=== PATIENT | female | born 1955 | race Caucasian/White ===

== ENCOUNTER 2016-11-27 12:38 | Observation (INO) | payer MEDICARE, OTHER ==
[2016-11-27] VITALS (7 sets, daily range): BP systolic 113–136; BP diastolic 47–74; PULSE 69–87; RESP 14–18; TEMP 97.8–98.2; O2SAT 97–99
[~2016-11-27] VITALS: Ht 172.7 cm; Wt 78.0 kg
[~2016-11-27 12:38] MED LIST: ATOR10 PO; CYMB60CA PO; HYDR-3129 PO; LEVO112T2 PO; LYRI150C PO; METO25 PO; NITR.4; PREG75 PO; ST JTAB PO; TAB-TAB PO; TEMA15 PO; TICA90 PO; VALI10TA PO
[2016-11-27] MEDS ORDERED: ASPI81TA11 PO (12:54)
[2016-11-27] MEDS ORDERED: ATOR10TA15 PO (12:56)
[2016-11-27] MEDS ORDERED: DULO1CAP3 PO (12:56)
[2016-11-27] MEDS ORDERED: DIAZ10TA PO (12:56)
[2016-11-27] MEDS ORDERED: HYDR-3583 PO (12:57)
--- NOTE | 2016-11-27 12:57 | PD ---
HPI Chief Complaint: Chest Pain Time Seen by Provider: 12:56 Travel History International Travel<30 days: No Contact w/Intl Traveler<30days: No Traveled to known affect area: No History of Present Illness HPI 61-year-old female came to the emergency room with history of precordial chest pain with radiation to her right arm. Patient took 2 of her nitroglycerin with no relief. She has history of coronary artery disease and her flame hardening machine setter is Dr. Vani Cardona. She called the flame hardening machine setter's office who asked her to call 911. EMS had given her one sublingual spray that subsided the chest pain. Currently she is chest pain-free. She does seem anxious. Vital signs are within normal limits. No history of syncopal episode or shortness of breath. [facility] Past Medical History Narrative Medical List of her past medical, surgical, social and family history was reviewed from the nursing note. Arthritis: Yes (OSTEO) Autoimmune Disease: No Blood Disorders: No Bipolar Disorder: Yes Anxiety: Yes Depression: Yes Heart Rhythm Problems: No Cancer: No Cardiac Catheterization: Yes Cardiovascular Problems: Yes High Cholesterol: Yes (05/29) Chest Pain: Yes Congestive Heart Failure: No Cerebrovascular Accident: Yes Diabetes: No Diminished Hearing: No Endocrine: Yes Fibromyalgia: Yes Gastrointestinal Disorders: Yes Genitourinary: No Hypertension: Yes Immune Disorder: No Implanted Vascular Access Dvce: Yes Musculoskeletal: Yes (osteoporosis, herniated disk,) Neurologic: Yes (NEUROPATHY) Psychiatric: Yes (bipolar, ptsd, depression) Reproductive: No Respiratory: No Myocardial Infarction: Yes (05/29) Thyroid Disease: Yes (HYPO) PNEUMOCCOCAL Vaccine (Year): 2 ?: Not Menopausal: Yes : 2 Para: 2 Past Surgical History Abdominal Surgery: No Body Medical Devices: DENTAL CROWN Cardiac Surgery: No Coronary Artery Bypass Graft: No Ear Surgery: No Endocrine Surgery: No Genitourinary Surgery: No Gynecologic Surgery: Yes (NOHEMY) Hysterectomy: Yes Neurologic Surgery: No Oral Surgery: Yes Thoracic Surgery: No Tonsillectomy: Yes Other Surgery: Yes (SILICONE AUGMENTATION MAMMOPLASTY, UPPER LID BLEPHAROPLASTY ) Social History Alcohol Use: No Tobacco Use: No Substance Use: No Allergies-Medications (Allergen,Severity, Reaction): Coded Allergies: No Known Allergies (Verified , 08/21/15) Comments No known drug allergies. Reported Meds & Prescriptions Reported Meds & Active Scripts Active Reported Temazepam 30 Mg Cap 30 Mg PO HS PRN Lyrica (Pregabalin) 150 Mg Cap 150 Mg PO BID Multiple Vitamin 1 Tab 1 Tab PO DAILY Levothyroxine (Levothyroxine Sodium) 112 Mcg Tab 112 Mcg PO DAILY Hydrocodone-Acetaminophen 10-325 mg Tab 1 Tab PO Q6H PRN Diazepam 10 Mg Tab 10 Mg PO Q8HR PRN Duloxetine DR (Duloxetine HCl) 60 Mg Capdr 60 Mg PO DAILY Atorvastatin (Atorvastatin Calcium) 10 Mg Tab 10 Mg PO HS Aspirin EC (Aspirin) 81 Mg Tabdr 81 Mg PO DAILY Narrative Medication List of her home medications reviewed from the nursing note. Review of Systems Except as stated in HPI: all other systems reviewed are Neg Physical Exam Narrative GENERAL: Awake, alert, elderly, looks older than her age, anxious SKIN: Focused skin assessment warm/dry. HEAD: Atraumatic. Normocephalic. EYES: Pupils equal and round. No scleral icterus. No injection or drainage. ENT: No nasal bleeding or discharge. Mucous membranes pink and moist. NECK: Trachea midline. No JVD. CARDIOVASCULAR: Regular rate and rhythm. No murmur appreciated. RESPIRATORY: No accessory muscle use. Clear to auscultation. Breath sounds equal bilaterally. GASTROINTESTINAL: Abdomen soft, non-tender, nondistended. Hepatic and splenic margins not palpable. MUSCULOSKELETAL: No obvious deformities. No clubbing. No cyanosis. No edema. NEUROLOGICAL: Awake and alert. No obvious cranial nerve deficits. Motor grossly within normal limits. Normal speech. PSYCHIATRIC: Appropriate mood and affect; insight and judgment normal. Data Data Last Documented VS Vital Signs Date Time Temp Pulse Resp B/P Pulse Ox O2 Delivery O2 Flow Rate FiO2 11/27/16 14:00 78 14 128/69 98 Room Air 11/27/16 12:46 98.2 Orders Electrocardiogram (11/27/16 13:22) Basic Metabolic Panel (Bmp) (11/27/16 13:22) Ckmb (Isoenzyme) Profile (11/27/16 13:22) Complete Blood Count With Diff (11/27/16 13:22) Magnesium (Mg) (11/27/16 13:22) Prothrombin Time / Inr (Pt) (11/27/16 13:22) Act Partial Throm Time (Ptt) (11/27/16 13:22) Troponin I (11/27/16 13:22) Chest, Single Ap (11/27/16 13:22) Ecg Monitoring (11/27/16 13:22) Bilateral Bp Monitoring (11/27/16 13:22) Iv Access Insert/Monitor (11/27/16 13:22) Oximetry (11/27/16 13:22) Oxygen Administration (11/27/16 13:22) Sodium Chloride 0.9% Flush (Ns Flush) (11/27/16 13:30) Aspirin Ec (Ecotrin Ec) (11/28/16 09:00) Atorvastatin (Lipitor) (11/27/16 21:00) Diazepam (Valium) (11/27/16 14:45) Duloxetine Dr (Quin Bates) (11/28/16 09:00) Acetamin-Hydrocod 325-10 Mg ([place] 10-32 (11/27/16 14:45) Levothyroxine (Synthroid) (11/28/16 06:00) Pregabalin (Lyrica) (11/27/16 21:00) Temazepam (Restoril) (11/27/16 14:45) Multivitamin (Theragran) (11/28/16 09:00) Place In Observation (11/27/16 ) Code Status (11/27/16 14:35) Vital Signs (Adult) Q4H (11/27/16 14:35) Activity Bed Rest (11/27/16 14:35) Barrel Cooper / Telemetry .CONTINUOUS (11/27/16 14:35) Intake + Output MICHAEL.QSHIFT (11/27/16 14:35) Notify Dr: Other (11/27/16 14:35) Diet Heart Healthy (11/27/16 Dinner) Sodium Chlor 0.9% 1000 Ml Inj (Ns 1000 M (11/27/16 14:35) Sodium Chloride 0.9% Flush (Ns Flush) (11/27/16 14:45) Sodium Chloride 0.9% Flush (Ns Flush) (11/27/16 21:00) Acetaminophen (Tylenol) (11/27/16 14:45) Ondansetron Inj (Zofran Inj) (11/27/16 14:45) Basic Metabolic Panel (Bmp) (11/28/16 06:00) Complete Blood Count With Diff (11/28/16 06:00) Enoxaparin Inj (Lovenox Inj) (11/27/16 16:00) Naloxone Inj (Narcan Inj) (11/27/16 14:45) Docusate Sodium-Senna (Carol-Colace) (11/27/16 21:00) Magnesium Hydroxide Liq (Milk Of Magnesi (11/27/16 14:45) Sennosides (Senokot) (11/27/16 14:45) Bisacodyl Supp (Dulcolax Supp) (11/27/16 14:45) Lactulose Liq (Lactulose Liq) (11/27/16 14:45) Consult Cardiology (11/27/16 ) Admit Order (Ed Use Only) (11/27/16 14:41) Labs Laboratory Tests Test 11/27/16 13:25 White Blood Count 8.7 TH/MM3 Red Blood Count 3.88 MIL/MM3 Hemoglobin 11.2 GM/DL Hematocrit 34.4 % Mean Corpuscular Volume 88.5 FL Mean Corpuscular Hemoglobin 28.7 PG Mean Corpuscular Hemoglobin 32.5 % Concent Red Cell Distribution Width 14.8 % Platelet Count 189 TH/MM3 Mean Platelet Volume 9.0 FL Neutrophils (%) (Auto) 70.6 % Lymphocytes (%) (Auto) 21.7 % Monocytes (%) (Auto) 6.9 % Eosinophils (%) (Auto) 0.2 % Basophils (%) (Auto) 0.6 % Neutrophils # (Auto) 6.1 TH/MM3 Lymphocytes # (Auto) 1.9 TH/MM3 Monocytes # (Auto) 0.6 TH/MM3 Eosinophils # (Auto) 0.0 TH/MM3 Basophils # (Auto) 0.0 TH/MM3 CBC Comment DIFF FINAL Differential Comment Prothrombin Time 10.1 SEC Prothromb Time International 0.9 RATIO Ratio Activated Partial 26.3 SEC Thromboplast Time Sodium Level 135 MEQ/L Potassium Level 4.0 MEQ/L Chloride Level 97 MEQ/L Carbon Dioxide Level 32.8 MEQ/L Anion Gap 5 MEQ/L Blood Urea Nitrogen 19 MG/DL Creatinine 0.74 MG/DL Estimat Glomerular Filtration 79 ML/MIN Rate Random Glucose 109 MG/DL Calcium Level 8.7 MG/DL Magnesium Level 2.1 MG/DL Total Creatine Kinase 59 U/L Troponin I LESS THAN 0.02 NG/ML MDM Medical Decision Making Medical Screen Exam Complete: Yes Emergency Medical Condition: Yes Medical Record Reviewed: Yes Interpretation(s) 12-lead EKG was reviewed by me. Normal sinus rhythm, normal axis, nonspecific ST-T wave changes. Heart rate of 69 bpm. Differential Diagnosis ACS, non-STEMI, nonspecific chest pain Narrative Course 2:28 PM patient has history of coronary artery disease and is currently medically managed. This could be an angina related chest pain. I do not see a benefit at this point putting her and chest pain center since she has known coronary artery disease that has not been fixed. I would like to bring her in for observation under medical service. Awaiting for the residents to call back. Procedures EKG Prior to Arrival: No Diagnosis Primary Impression: Chest pain Qualified Code: R07.9 - Chest pain, unspecified type Admitting Information Admitting Physician Requests: Observation Scripts Metoprolol Tartrate 25 Mg Tab25 Mg PO Q12HR #60 TAB Prov:Cirilo Sargent 11/28/16 Glen Martinez MD Nov 27, 2016 12:57
[2016-11-27] MEDS ORDERED: LEVO112T2 PO (12:59)
[2016-11-27] MEDS ORDERED: MULTTAB67 PO (12:59)
[2016-11-27] MEDS ORDERED: TEMA30CA PO (13:02)
[2016-11-27] MEDS ORDERED: LYRI150C PO (13:02)
[2016-11-27] MEDS ORDERED: SODIUM CHLORIDE 0.9% FLUSH 10 ML FLUSH IVF PRN (13:30)
[2016-11-27 13:45] LABS: AUTOMATED NEUTROPHIL # 6.1 TH/MM3 (1.8-7.7); BASOPHIL % 0.6 % (0.0-2.0); EOSINOPHIL % 0.2 % (0.0-4.0); HEMATOCRIT 34.4 % (35.0-46.0); HEMO FLAGS DIFF FINAL; LYMPH % 21.7 % (9.0-44.0); LYMPHOCYTE # 1.9 TH/MM3 (1.0-4.8); MEAN CELL VOLUME 88.5 FL (80.0-100.0); MEAN CORPUSCULAR HEMOGLOBIN 28.7 PG (27.0-34.0); MEAN CORPUSCULAR HGB CONC 32.5 % (32.0-36.0); MONO % 6.9 % (0.0-8.0); NEUT % 70.6 % (16.0-70.0); PLATELET COUNT 189 TH/MM3 (150-450); RED BLOOD COUNT 3.88 MIL/MM3 (4.00-5.30); RED CELL DISTRIBUTION WIDTH 14.8 % (11.6-17.2); WHITE BLOOD COUNT 8.7 TH/MM3 (4.0-11.0)
[2016-11-27 13:55] LABS: APTT (PATIENT) 26.3 SEC (24.3-30.1); INTERNATIONAL NORMALIZED RATIO 0.9 RATIO; PROTHROMBIN TIME - PATIENT 10.1 SEC (9.8-11.6)
[2016-11-27 14:06] LABS: ANION GAP 5 MEQ/L (5-15); BICARBONATE 32.8 MEQ/L (21.0-32.0); BLOOD UREA NITROGEN 19 MG/DL (7-18); CHLORIDE 97 MEQ/L (98-107); GLOMERULAR FILTRATION RATE 79 ML/MIN (>89); MAGNESIUM 2.1 MG/DL (1.5-2.5); SODIUM (NA) 135 MEQ/L (136-145)
[2016-11-27 14:14] LABS: CREATINE KINASE 59 U/L (26-192)
--- NOTE | 2016-11-27 14:16 | RADRPT ---
EXAM DATE/TIME: 11/27/2016 13:42 [facility] COMPARISON: CHEST SINGLE AP, July 08, 2015, 11:18. INDICATIONS : Chest pain and pressure today. MEDICAL HISTORY : Hypertension. Stroke. Myocardial infarction. SURGICAL HISTORY : Cardiac cath. Stent. ENCOUNTER: Initial ACUITY: 1 day PAIN SCORE: 8/10 LOCATION: Bilateral chest FINDINGS: There are COPD changes. The heart is normal in size. The visualized bony structures are grossly intac t. The examination is stable compared to previous. CONCLUSION: COPD changes. No acute abnormality identified. Kenyon Carranza MD on November 27, 2016 at 14:13 Board Certified Radiologist. This report was verified electronically.
[2016-11-27] MEDS ORDERED: ONDANSETRON HCL 4 MG/2 ML VIAL IVP PRN (14:45)
[2016-11-27] MEDS ORDERED: DIAZEPAM 10 MG TAB PO PRN (14:45)
[2016-11-27] MEDS ORDERED: LACTULOSE SYRUP 20 GM/30 ML CUP PO PRN (14:45)
[2016-11-27] MEDS ORDERED: NALOXONE HCL 0.4 MG/ML AMP IV PRN (14:45)
[2016-11-27] MEDS ORDERED: BISACODYL 10 MG SUPP RECTAL PRN (14:45)
[2016-11-27] MEDS ORDERED: SODIUM CHLORIDE 0.9% FLUSH 10 ML FLUSH IV FLUSH PRN (14:45)
[2016-11-27] MEDS ORDERED: ACETAMINOPHEN/HYDROcodone 325 MG/10 MG TAB PO PRN (14:45)
[2016-11-27] MEDS ORDERED: TEMAZEPAM 15 MG CAP PO PRN (14:45)
[2016-11-27] MEDS ORDERED: SENNOSIDES 8.6 MG TAB PO PRN (14:45)
[2016-11-27] MEDS ORDERED: MAGNESIUM HYDROXIDE SUSP 30 ML CUP PO PRN (14:45)
[2016-11-27] MEDS ORDERED: ACETAMINOPHEN 325 MG TAB PO PRN (14:45)
--- NOTE | 2016-11-27 14:54 | HHI.HP ---
[facility] Service [facility] Physician Luis Enrique Cazares M.D. Admission Diagnosis chest pain, rule out ACS Diagnoses: Chief Complaint: chest pain Travel History International Travel<30 Days: No Contact w/Intl Traveler <30 Da: No Traveled to Known Affected Are: No History of Present Illness 61-year-old female with history of CAD, prior [place], CVA, hypothyroidism, arthritis , depression/bipolar disorder, insomnia, fibromyalgia, neuropathy, presents with acute onset of chest pain earlier today 11/27/16. 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 The patient took one nitroglycerin however the pain worsened, therefore three minutes later she took another sublingual nitroglycerin. Her pain still did not improve so she called her lighting specialist Dr. Cardona's office who recommended she call 911 immediately. She called 911, en route she was given nitroglycerin spray which completely relieved her symptoms. She was chest pain-free upon arrival. Patient has a history of cardiac catheterization in which showed significant disease with 90% stenosis to the LAD and circumflex however both vessels are too small to stent or angioplasty. She was placed on aspirin/Brilinta at that time, however subsequently taken off Brilinta approximately 1 year ago. The patient states her symptoms were very similar to her previous [place]. However the patient states she is very active, does 45 minutes of aerobics at the [facility], and she has not experienced any chest pains recently. The patient is currently resting comfortably, no chest pains, wants to eat, agrees to admission for further evaluation by cardiology. Review of Systems Constitutional: DENIES: Diaphoretic episodes, Fever, Chills, Dizziness Eyes: DENIES: Blurred vision, Vision loss, Double Vision Ears, nose, mouth, throat: DENIES: Throat pain, Ear Pain, Odynophagia Respiratory: COMPLAINS OF: Shortness of breath, DENIES: Cough, Wheezing Cardiovascular: COMPLAINS OF: Chest pain, DENIES: Palpitations, Syncope, Dyspnea on Exertion, Lower Extremity Edema Past Family Social History Past Medical History CAD Hypothyroidism Arthritis Depression CVA Bipolar disorder Insomnia Fibromyalgia Neuropathy Past Surgical History Tonsillectomy Hysterectomy Breast augmentation Cardiac Catheterization 2014 Reported Medications Temazepam 30 Mg Cap 30 Mg PO HS PRN Lyrica (Pregabalin) 150 Mg Cap 150 Mg PO BID Multiple Vitamin 1 Tab 1 Tab PO DAILY Levothyroxine (Levothyroxine Sodium) 112 Mcg Tab 112 Mcg PO DAILY Hydrocodone-Acetaminophen 10-325 mg Tab 1 Tab PO Q6H PRN Diazepam 10 Mg Tab 10 Mg PO Q8HR PRN Duloxetine DR (Duloxetine HCl) 60 Mg Capdr 60 Mg PO DAILY Atorvastatin (Atorvastatin Calcium) 10 Mg Tab 10 Mg PO HS Aspirin EC (Aspirin) 81 Mg Tabdr 81 Mg PO DAILY Allergies: Coded Allergies: No Known Allergies (Verified , 08/21/15) Active Ordered Medications Current Medications Medications (Trade) Dose Ordered Sig/Sandy Route Start Time Stop Time Status Last Admin (Ecotrin Ec) 81 mg DAILY PO 11/28/16 09:00 (Lipitor) 10 mg HS PO 11/27/16 21:00 (Valium) 10 mg Q8HR PRN PO 11/27/16 14:45 (Cymbalta Dr) 60 mg DAILY PO 11/28/16 09:00 ([place] 10-325 Mg) 1 tab Q6H PRN PO 11/27/16 14:45 (Synthroid) 112 mcg DAILY@0600 PO 11/28/16 06:00 (Lyrica) 150 mg BID PO 11/27/16 21:00 (Restoril) 30 mg HS PRN PO 11/27/16 14:45 Multivitamins 1 tab 1 tab DAILY PO 11/28/16 09:00 (NS 1000 ml Inj) 1,000 ml @ 83 mls/hr Q12H3M IV 11/27/16 14:35 (NS Flush) 2 ml UNSCH PRN IV FLUSH 11/27/16 14:45 (NS Flush) 2 ml BID IV FLUSH 11/27/16 21:00 (Tylenol) 650 mg Q4H PRN PO 11/27/16 14:45 (Zofran Inj) 4 mg Q6H PRN IVP 11/27/16 14:45 (Lovenox Inj) 40 mg Q24H SQ 11/27/16 16:00 (Narcan Inj) 0.4 mg UNSCH PRN IV 11/27/16 14:45 (Carol-Colace) 1 tab BID PO 11/27/16 21:00 (Milk Of Magnesia Liq) 30 ml Q12H PRN PO 11/27/16 14:45 (Senokot) 17.2 mg Q12H PRN PO 11/27/16 14:45 (Dulcolax Supp) 10 mg DAILY PRN RECTAL 11/27/16 14:45 (Lactulose Liq) 30 ml DAILY PRN PO 11/27/16 14:45 Family History Mother of TN age 77 Father had TN age 20, and CAD and no recurrent TN (still alive) Sister, TN age 62 Grandfather on TN age 50 No family history of cancers Aunt-mini strokes Social History Denies any tobacco use Prior heavy alcohol use with 1 pint vodka/day, quit 02/12/14 Denies any illicit drug use Physical Exam Vital Signs Vital Signs Date Time Temp Pulse Resp B/P Pulse Ox O2 Delivery O2 Flow Rate FiO2 11/27/16 13:55 128/69 11/27/16 13:54 134/69 11/27/16 13:51 99 Room Air 11/27/16 13:51 99 Room Air 11/27/16 12:46 98.2 69 15 136/74 99 Physical Exam GENERAL: Well-nourished, well-developed elderly appearing female patient in [facility]. SKIN: Warm and dry. No rash. HEAD: Normocephalic. Atraumatic. EYES: Pupils equal and round. No scleral icterus. No injection or drainage. ENT: No nasal bleeding or discharge. Mucous membranes pink and moist. NECK: Supple. Trachea midline. CARDIOVASCULAR: Regular rate and rhythm. S1, S2 noted. No murmur appreciated. RESPIRATORY: No accessory muscle use. Clear to auscultation. Breath sounds equal bilaterally. GASTROINTESTINAL: Abdomen soft, non-tender, nondistended. Normoactive bowel sounds x4. MUSCULOSKELETAL: No obvious deformities. Extremities without clubbing, cyanosis , or edema. NEUROLOGICAL: Awake and alert. No obvious cranial nerve deficits. Motor grossly within normal limits. Moves all extremities spontaneously. Normal speech. PSYCHIATRIC: Appropriate mood and affect; insight and judgment normal. Laboratory Laboratory Tests Test 11/27/16 13:25 White Blood Count 8.7 Red Blood Count 3.88 Hemoglobin 11.2 Hematocrit 34.4 Mean Corpuscular Volume 88.5 Mean Corpuscular Hemoglobin 28.7 Mean Corpuscular Hemoglobin 32.5 Concent Red Cell Distribution Width 14.8 Platelet Count 189 Mean Platelet Volume 9.0 Neutrophils (%) (Auto) 70.6 Lymphocytes (%) (Auto) 21.7 Monocytes (%) (Auto) 6.9 Eosinophils (%) (Auto) 0.2 Basophils (%) (Auto) 0.6 Neutrophils # (Auto) 6.1 Lymphocytes # (Auto) 1.9 Monocytes # (Auto) 0.6 Eosinophils # (Auto) 0.0 Basophils # (Auto) 0.0 CBC Comment DIFF FINAL Differential Comment Prothrombin Time 10.1 Prothromb Time International 0.9 Ratio Activated Partial 26.3 Thromboplast Time Sodium Level 135 Potassium Level 4.0 Chloride Level 97 Carbon Dioxide Level 32.8 Anion Gap 5 Blood Urea Nitrogen 19 Creatinine 0.74 Estimat Glomerular Filtration 79 Rate Random Glucose 109 Calcium Level 8.7 Magnesium Level 2.1 Total Creatine Kinase 59 Troponin I LESS THAN 0.02 Result Diagram: 11/27/16 1325 11/27/16 1325 Imaging Last Impressions Chest X-Ray 11/27/16 1322 Signed Impressions: Service Date/Time: November 13:42 - CONCLUSION: COPD changes. No acute abnormality identified. Kenyon Carranza MD Assessment and Plan Problem List: (1) Chest pain ICD Code: R07.9 Status: Acute (2) CAD (coronary artery disease) ICD Code: I25.10 Status: Acute Assessment and Plan 61-year-old female with history of CAD, prior [place], CVA, hypothyroidism, arthritis , depression/bipolar disorder, insomnia, fibromyalgia, neuropathy, presents with acute onset of chest pain earlier today 11/27/16. Chest Pain: with hx of CAD. Rule out ACS. Symptoms similar to previous [place], chest pain relieved by nitro en route. Hx of Cardiac Cath showed significant disease to 2 vessels with 90% stenosis of LAD and circumflex, however vessels too small to stent or angioplasty. Initial troponin 0.02. EKG reviewed, shows NSR, no acute ST changes. -Continue to rule out ACS with serial cardiac enzymes and EKGs -Continue aspirin, statin, nitro prn, IV morphine prn -Start beta jose -check lipid panel in the am -Monitor on telemetry -Consult cardiology Hypothyroidism: chronic -check TSH -continue patient's Synthroid Arthritis/Chronic Back Pain/Fibromyalgia/Neuropathy: chronic -continue patient's Lyrica, Cymbalta, and [place] prn Insomnia: chronic -continue patient's Temazepam prn DVT Prophylaxis: Heparin sq Code Status Full Code. Discussed Condition With Patient, Patient's daughter at bedside, Dr. Cazares Attending Statement Patient seen in Emergency Room, discussed about the case, examined, discussed with HA Mrs. Geam Watkins will follow her Hospitalized for 23 hours observation and follow hydramatic specialist recommendations, also she is Asymptomatic at this time Problem Qualifiers (1) Chest pain: Qualified Code: R07.9 - Chest pain, unspecified type Gema Watkins PA-C Nov 27, 2016 14:54 Tony Traylor MD Nov 27, 2016 17:12
[2016-11-27] MEDS ORDERED: ENOXAPARIN SODIUM 40 MG/0.4 ML SYRINGE SQ SCH (16:00)
[2016-11-27] MEDS ORDERED: NITROGLYCERIN 0.4 MG SL 25 TABS/BTL SL PRN (16:15)
[2016-11-27] MEDS ORDERED: MORPHINE SULFATE 4 MG/ML INJ IV PUSH PRN (16:15)
[2016-11-27] MEDS: SODIUM CHLOR 0.9% 1000 ML INJ 1,000 ML IV SCH (18:07)
[2016-11-27] MEDS: ATORVASTATIN 10 MG TAB PO SCH ×2 (20:39→20:54)
[2016-11-27] MEDS: SODIUM CHLORIDE 0.9% FLUSH 10 ML FLUSH IV FLUSH SCH (20:39)
[2016-11-27] MEDS: HEPARIN SODIUM - SQ 10,000 UNITS/ML VIAL SQ SCH ×2 (20:39→20:54)
[2016-11-27] MEDS: METOPROLOL TARTRATE 25 MG TAB PO SCH ×2 (20:39→20:54)
[2016-11-27] MEDS: DOCUSATE SODIUM 50 MG/SENNA 8.6 MG TAB PO SCH ×2 (20:39→20:54)
[2016-11-27] MEDS: PREGABALIN 75 MG CAP PO SCH ×2 (20:39→20:55)
[2016-11-27 21:56] LABS: CREATINE KINASE 106 U/L (26-192)
[2016-11-28 01:22] VITALS: BP 115/66; PULSE 66; RESP 18; TEMP 97.9; O2SAT 98
[2016-11-28 01:36] VITALS: PULSE 76
[2016-11-28 01:57] LABS: CREATINE KINASE 43 U/L (26-192)
[2016-11-28 04:34] VITALS: BP 121/65; PULSE 63; RESP 18; TEMP 97.6; O2SAT 99
[2016-11-28] MEDS ORDERED: LEVOTHYROXINE SODIUM 112 MCG TAB PO SCH (06:00)
[2016-11-28] MEDS: SODIUM CHLOR 0.9% 1000 ML INJ 1,000 ML IV SCH ×2 (06:24→14:41)
[2016-11-28 07:52] VITALS: BP 134/72; PULSE 67; RESP 21; TEMP 97.7; O2SAT 98
[2016-11-28 08:01] LABS: AUTOMATED NEUTROPHIL # 2.6 TH/MM3 (1.8-7.7); BASOPHIL % 0.6 % (0.0-2.0); EOSINOPHIL # 0.1 TH/MM3 (0-0.4); EOSINOPHIL % 1.3 % (0.0-4.0); HEMATOCRIT 34.2 % (35.0-46.0); HEMO FLAGS DIFF FINAL; LYMPH % 39.5 % (9.0-44.0); LYMPHOCYTE # 2.1 TH/MM3 (1.0-4.8); MEAN CELL VOLUME 88.9 FL (80.0-100.0); MEAN CORPUSCULAR HEMOGLOBIN 29.3 PG (27.0-34.0); MONO % 8.6 % (0.0-8.0); PLATELET COUNT 177 TH/MM3 (150-450); RED BLOOD COUNT 3.85 MIL/MM3 (4.00-5.30); RED CELL DISTRIBUTION WIDTH 15.8 % (11.6-17.2); WHITE BLOOD COUNT 5.2 TH/MM3 (4.0-11.0)
[2016-11-28 08:37] LABS: BICARBONATE 26.8 MEQ/L (21.0-32.0)
[2016-11-28 08:40] LABS: HDL CHOLESTEROL 28.8 MG/DL (40.0-60.0)
[2016-11-28] MEDS: SODIUM CHLORIDE 0.9% FLUSH 10 ML FLUSH IV FLUSH SCH (08:42)
[2016-11-28] MEDS ORDERED: ASPIRIN EC 81 MG TABEC PO SCH (09:00)
[2016-11-28] MEDS ORDERED: DULoxetine HCl DR 60 MG CAP PO SCH (09:00)
[2016-11-28] MEDS: DOCUSATE SODIUM 50 MG/SENNA 8.6 MG TAB PO SCH (09:00)
[2016-11-28] MEDS ORDERED: MULTIVITAMIN TAB PO SCH (09:00)
[2016-11-28] MEDS: PREGABALIN 75 MG CAP PO SCH (09:14)
[2016-11-28] MEDS: HEPARIN SODIUM - SQ 10,000 UNITS/ML VIAL SQ SCH (09:15)
[2016-11-28] MEDS: METOPROLOL TARTRATE 25 MG TAB PO SCH (09:19)
--- NOTE | 2016-11-28 11:22 | HHI.PR ---
Subjective Remarks Follow-up for chest pain. The patient's main complaints are that she was concerned about her home medications. She was not restarted on her home Doxepin for sleep last night. She also didn't know that her control medications were as needed and she would have to ask for them here. She denies any further chest pain overnight. She states that chest pain symptoms resolved after nitroglycerin spray in the ambulance. She does state that yesterday she was having a very stressful conversation when the chest pain started. She had associated shortness of breath, nausea, and generalized weakness with the chest pain. She states the pain radiated to her right arm and right neck. She states that these were similar to her previous symptoms in 2015 which is what prompted her to take 2 nitroglycerin and call her manager delivery. Objective Vitals Vital Signs Date Time Temp Pulse Resp B/P Pulse Ox O2 Delivery O2 Flow Rate FiO2 11/28/16 07:52 97.7 67 21 134/72 98 11/28/16 04:34 97.6 63 18 121/65 99 11/28/16 01:36 76 11/28/16 01:22 97.9 66 18 115/66 98 11/27/16 21:53 98.1 80 18 113/61 97 11/27/16 16:08 97.8 87 18 119/47 97 11/27/16 14:00 78 14 128/69 98 Room Air 11/27/16 13:55 128/69 11/27/16 13:54 134/69 11/27/16 13:51 99 Room Air 11/27/16 13:51 99 Room Air 11/27/16 12:46 98.2 69 15 136/74 99 Result Diagram: 11/28/16 0653 11/28/16 0653 Imaging Last Impressions Chest X-Ray 11/27/16 1322 Signed Impressions: Service Date/Time: November 13:42 - CONCLUSION: COPD changes. No acute abnormality identified. Kenyon Carranza MD Objective Remarks GENERAL: Well-developed well-nourished. In no acute distress. SKIN: Warm and dry. No lesions noted. HEENT: Normocephalic. Pupils equal and round. Mucous membranes pink and moist. CARDIOVASCULAR: Regular rate and rhythm. No murmur appreciated. RESPIRATORY: No accessory muscle use. Clear to auscultation. Breath sounds equal bilaterally. GASTROINTESTINAL: Abdomen soft, non-tender, nondistended. Bowel sounds x4. MUSCULOSKELETAL: No obvious deformities. No clubbing or cyanosis. No edema. NEUROLOGICAL: Awake and alert. No focal neurological deficits. Moves upper and lower extremities spontaneously. Normal speech. PSYCHIATRIC: Extremely anxious mood and affect; insight and judgment normal. A/P Problem List: (1) Chest pain ICD Code: R07.9 Status: Acute (2) CAD (coronary artery disease) ICD Code: I25.10 Status: Chronic Assessment and Plan 61-year-old female with history of CAD, prior [place], CVA, hypothyroidism, arthritis , depression/bipolar disorder, insomnia, fibromyalgia, neuropathy, presents with acute onset of chest pain earlier today 11/27/16. Chest Pain: with hx of CAD. Rule out ACS. Symptoms similar to previous [place], chest pain relieved by nitro en route. Hx of Cardiac Cath showed significant disease to 2 vessels with 90% stenosis of LAD and circumflex, however vessels too small to stent or angioplasty. Reviewed: Troponin 0.02x3. EKGs shows NSR, no acute ST changes. Lipid panel shows LDL 38 and HDL 28. -ACS ruled out per protocol -Continue aspirin, statin, nitro prn, IV morphine prn -Started metoprolol -Monitor on telemetry -Consulted cardiology, appreciate input Hypothyroidism: chronic -check TSH -continue patient's Synthroid Arthritis/Chronic Back Pain/Fibromyalgia/Neuropathy: chronic -continue patient's Lyrica, Cymbalta, and [place] prn Insomnia: chronic -continue patient's doxepin and Temazepam prn DVT Prophylaxis: Heparin sq Discharge Planning Follow-up cardiology recommendations. Possible discharge planning later today if cleared by cardiology. 1430 RN was able to get in touch with patient's manager delivery, Dr. Cardona, who states the patient is well-known to her. Dr. Cardona recommended outpatient follow-up with her in one week. As patient is clear from cardiology perspective , we'll discharge home for outpatient cardiology follow-up. Prescription for metoprolol written. Problem Qualifiers (1) Chest pain: Qualified Code: R07.9 - Chest pain, unspecified type Cirilo Sargent Nov 28, 2016 11:22
[2016-11-28 11:59] VITALS: BP 134/71; PULSE 74; RESP 19; TEMP 97.8; O2SAT 98
[2016-11-28] MEDS ORDERED: DOXE25CA2 PO (12:04)
--- NOTE | 2016-11-28 14:24 | HHI.DS ---
Discharge Summary Admission Date Nov 27, 2016 at 14:42 Discharge Date: Nov 28, 2016 Admitting Diagnosis chest pain, rule out ACS (1) Chest pain ICD Code: R07.9 Diagnosis: Principal (2) CAD (coronary artery disease) ICD Code: I25.10 Diagnosis: Principal Procedures none Brief History - From Admission 61-year-old female with history of CAD, prior UT, CVA, hypothyroidism, arthritis , depression/bipolar disorder, insomnia, fibromyalgia, neuropathy, presents with acute onset of chest pain earlier today 11/27/16. 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 The patient took one nitroglycerin however the pain worsened, therefore three minutes later she took another sublingual nitroglycerin. Her pain still did not improve so she called her supervisor propellant charge loading Dr. Cardona's office who recommended she call 911 immediately. She called 911, en route she was given nitroglycerin spray which completely relieved her symptoms. She was chest pain-free upon arrival. Patient has a history of cardiac catheterization in which showed significant disease with 90% stenosis to the LAD and circumflex however both vessels are too small to stent or angioplasty. She was placed on aspirin/Brilinta at that time, however subsequently taken off Brilinta approximately 1 year ago. The patient states her symptoms were very similar to her previous UT. However the patient states she is very active, does 45 minutes of aerobics at the [facility], and she has not experienced any chest pains recently. The patient is currently resting comfortably, no chest pains, wants to eat, agrees to admission for further evaluation by cardiology. CBC/BMP: 11/28/16 0653 11/28/16 0653 Significant Findings Laboratory Tests Test 11/27/16 11/27/16 11/28/16 11/28/16 13:25 20:45 01:20 06:53 Red Blood Count 3.88 MIL/MM3 3.85 MIL/MM3 (4.00-5.30) (4.00-5.30) Hemoglobin 11.2 GM/DL 11.3 GM/DL (11.6-15.3) (11.6-15.3) Hematocrit 34.4 % 34.2 % (35.0-46.0) (35.0-46.0) Neutrophils (%) (Auto) 70.6 % (16.0-70.0) Sodium Level 135 MEQ/L 135 MEQ/L (136-145) (136-145) Chloride Level 97 MEQ/L (98-107) Carbon Dioxide Level 32.8 MEQ/L (21.0-32.0) Blood Urea Nitrogen 19 MG/DL (7-18) Estimat Glomerular Filtration 79 ML/MIN (>89) Rate Random Glucose 109 MG/DL (74-106) Troponin I LESS THAN 0.02 LESS THAN 0.02 LESS THAN 0.02 NG/ML NG/ML NG/ML (0.02-0.05) (0.02-0.05) (0.02-0.05) Monocytes (%) (Auto) 8.6 % (0.0-8.0) Calcium Level 8.0 MG/DL (8.5-10.1) Cholesterol Level 76 MG/DL (120-200) HDL Cholesterol 28.8 MG/DL (40.0-60.0) Imaging Last Impressions Chest X-Ray 11/27/16 1322 Signed Impressions: Service Date/Time: November 13:42 - CONCLUSION: COPD changes. No acute abnormality identified. Kenyon Carranza MD PE at Discharge GENERAL: Well-developed well-nourished. In no acute distress. SKIN: Warm and dry. No lesions noted. HEENT: Normocephalic. Pupils equal and round. Mucous membranes pink and moist. CARDIOVASCULAR: Regular rate and rhythm. No murmur appreciated. RESPIRATORY: No accessory muscle use. Clear to auscultation. Breath sounds equal bilaterally. GASTROINTESTINAL: Abdomen soft, non-tender, nondistended. Bowel sounds x4. MUSCULOSKELETAL: No obvious deformities. No clubbing or cyanosis. No edema. NEUROLOGICAL: Awake and alert. No focal neurological deficits. Moves upper and lower extremities spontaneously. Normal speech. PSYCHIATRIC: Extremely anxious mood and affect; insight and judgment normal. Pt update on day of discharge In bed. Says she has no chest pain since admission. No fever or chills. No n/v/d /c. Denies sob. Says she is anxious at times. Says she is taking anxiety meds given by her PCP. Patient had multiple questions, all answered on best of my ability. Hospital Course 61-year-old female with history of CAD, prior UT, CVA, hypothyroidism, arthritis , depression/bipolar disorder, insomnia, fibromyalgia, neuropathy, presents with acute onset of chest pain earlier today 11/27/16. Chest Pain: with hx of CAD. Rule out ACS. Symptoms similar to previous UT, chest pain relieved by nitro en route. Hx of Cardiac Cath showed significant disease to 2 vessels with 90% stenosis of LAD and circumflex, however vessels too small to stent or angioplasty. Reviewed: Troponin 0.02x3. EKGs shows NSR, no acute ST changes. Lipid panel shows LDL 38 and HDL 28. -ACS ruled out per protocol -Continue aspirin, statin, nitro prn, IV morphine prn -Started metoprolol -Monitor on telemetry -Consulted cardiology, appreciate input Hypothyroidism: chronic -check TSH -continue patient's Synthroid Arthritis/Chronic Back Pain/Fibromyalgia/Neuropathy: chronic -continue patient's Lyrica, Cymbalta, and Mack prn Insomnia: chronic -continue patient's doxepin and Temazepam prn DVT Prophylaxis: Heparin sq Discharge Planning The patient is well-known to her. Dr. Cardona recommended outpatient follow-up with her in one week. Patient discharged in stable condition, to follow up as OP with PCP and consultants Pt Condition on Discharge: Stable Discharge Disposition: Discharge to SNF Discharge Time: > 30 minutes Discharge Instructions DIET: Follow Instructions for: Heart Healthy Diet Activities you can perform: Regular-No Restrictions Follow up Referrals: Cardiology - 1 Week with Vani Cardona MD PCP Follow-up - 1 Week with Luis Enrique Cazares M.d. New Medications: Metoprolol Tartrate (Metoprolol Tartrate) 25 Mg Tab 25 MG PO Q12HR Blood Pressure Management #60 TAB Continued Medications: Aspirin DR (Aspirin EC) 81 Mg Tabdr 81 MG PO DAILY Ref 0 TAB Atorvastatin (Atorvastatin) 10 Mg Tab 10 MG PO HS Cholesterol Management #30 Ref 0 TAB Diazepam (Diazepam) 10 Mg Tab 10 MG PO Q8HR PRN ANXIETY Ref 0 TAB Doxepin (Doxepin) 25 Mg Cap 10 MG PO HS PRN INSOMNIA #30 Ref [address] (Duloxetine DR) 60 Mg Capdr 60 MG PO DAILY #30 Ref 0 CAP Hydrocodone-Acetaminophen (Hydrocodone-Acetaminophen) 10-325 mg Tab 1 TAB PO Q6H PRN PAIN Ref 0 TAB Levothyroxine (Levothyroxine) 112 Mcg Tab 112 MCG PO DAILY Thyroid #30 Ref 0 TAB Multiple Vitamin (Multiple Vitamin) 1 Tab 1 TAB PO DAILY Nutritional Supplement Ref 0 TAB Pregabalin (Lyrica) 150 Mg Cap 150 MG PO BID #60 Ref 0 CAP Temazepam (Temazepam) 30 Mg Cap 30 MG PO HS PRN INSOMNIA #30 Ref 0 CAP Mattie Okeefe MD Nov 28, 2016 14:24
[2016-11-28] MEDS ORDERED: METO25TA3 PO (14:55)
[2016-11-28 15:20] VITALS: BP 134/67; PULSE 75; RESP 20; TEMP 97.9; O2SAT 97
--- NOTE | 2016-11-28 22:30 | EKG ---
Date Performed: 11/28/2016 Time Performed: 01:29:19 PTAGE: 61 years EKG: Sinus rhythm NORMAL ECG PREVIOUS TRACING : 11/27/2016 19.52 DOCTOR: Rosie Adkins Interpretating Date/Time 11/28/2016 22:28:31
--- NOTE | 2016-11-28 22:37 | EKG ---
Date Performed: 11/27/2016 Time Performed: 19:52:47 PTAGE: 61 years EKG: Sinus rhythm NORMAL ECG PREVIOUS TRACING : 11/27/2016 12.47 DOCTOR: Rosie Adkins Interpretating Date/Time 11/28/2016 22:35:20
--- NOTE | 2016-11-28 22:53 | EKG ---
Date Performed: 11/27/2016 Time Performed: 12:47:36 PTAGE: 61 years EKG: Sinus rhythm NORMAL ECG PREVIOUS TRACING : 08/21/2015 15.36 DOCTOR: Rosie Adkins Interpretating Date/Time 11/28/2016 22:53:10
== END 2016-11-28 18:13 | disposition home or self-care (01) ==
LOC: NEPE 12:38 → NEDA 14:42 → NEPFCDU 15:52
PROVIDERS: ADMIT Hospitalist; ATTEND Hospitalist
DX: R07.89 Other chest pain (principal); I25.10 Atherosclerotic heart disease of native coronary artery without angina pectoris; E03.9 Hypothyroidism, unspecified; G62.9 Polyneuropathy, unspecified; G89.29 Other chronic pain; M54.9 Dorsalgia, unspecified; M79.7 Fibromyalgia; G47.00 Insomnia, unspecified; F31.9 Bipolar disorder, unspecified; I25.2 Old myocardial infarction; F41.9 Anxiety disorder, unspecified; I10 Essential (primary) hypertension; E78.00 Pure hypercholesterolemia, unspecified; M19.90 Unspecified osteoarthritis, unspecified site; Z86.73 Personal history of transient ischemic attack (TIA), and cerebral infarction without residual deficits; Z95.5 Presence of coronary angioplasty implant and graft; Z79.82 Long term (current) use of aspirin
CPT/HCPCS: 71010; 80048; 80061; 82550; 83735; 84443; 84484; 85025; 85610; 85730; 93005; 96360; 99285; G0378; J1644; J7030

== ENCOUNTER 2017-05-31 16:57 | Emergency (ER) | payer MEDICARE, OTHER ==
[~2017-05-31] VITALS: Ht 172.7 cm; Wt 78.0 kg
[~2017-05-31 16:57] MED LIST changes: +ASPI81TA23 PO; -ATOR10 PO; +ATOR10TA15 PO; -CYMB60CA PO; +DIAZ10TA PO; +DOXE25CA2 PO; +DULO1CAP3 PO; -HYDR-3129 PO; +HYDR-3583 PO; -METO25 PO; +METO25TA3 PO; +MULTTAB67 PO; -NITR.4; -PREG75 PO; -ST JTAB PO; -TAB-TAB PO; -TEMA15 PO; +TEMA30CA PO; -TICA90 PO; -VALI10TA PO
[2017-05-31 16:58] VITALS: BP 145/67; PULSE 85; RESP 16; TEMP 98.3; O2SAT 98
--- NOTE | 2017-05-31 17:14 | PD ---
HPI Chief Complaint: ENT Complaint Time Seen by Provider: 17:13 Travel History International Travel<30 days: No Contact w/Intl Traveler<30days: No Traveled to known affect area: No History of Present Illness HPI 61-year-old female came to the emergency room with history of sore throat since past 24 hours. She says she has some low-grade temperature. Both her grandchildren are getting seen and were tested positive for strep. Based on her symptoms the ER physician who has been seeing them asked her to be checked as well. Signs are otherwise stable. No respiratory difficulty. PFSH Past Medical History Narrative Medical List of her past medical, surgical, social and family history is reviewed from the nursing note. Arthritis: Yes (OSTEO) Autoimmune Disease: No Blood Disorders: No Bipolar Disorder: Yes Anxiety: Yes Depression: Yes Heart Rhythm Problems: No Cancer: No Cardiac Catheterization: Yes Cardiovascular Problems: Yes High Cholesterol: Yes (05/29) Chest Pain: Yes Congestive Heart Failure: No Cerebrovascular Accident: Yes Diabetes: No Diminished Hearing: No Endocrine: Yes Fibromyalgia: Yes Gastrointestinal Disorders: Yes Genitourinary: No Hypertension: Yes Immune Disorder: No Implanted Vascular Access Dvce: Yes Musculoskeletal: Yes (osteoporosis, herniated disk,) Neurologic: Yes (NEUROPATHY BILATERAL FEET) Psychiatric: Yes (bipolar, ptsd, depression) Reproductive: No Respiratory: No Myocardial Infarction: Yes (05/29) Thyroid Disease: Yes (HYPO) PNEUMOCCOCAL Vaccine (Year): 2 ?: Not Menopausal: Yes : 2 Para: 2 Past Surgical History Abdominal Surgery: No Body Medical Devices: DENTAL CROWN Cardiac Surgery: No Coronary Artery Bypass Graft: No Ear Surgery: No Endocrine Surgery: No Genitourinary Surgery: No Gynecologic Surgery: Yes (NOHEMY) Hysterectomy: Yes Neurologic Surgery: No Oral Surgery: Yes Thoracic Surgery: No Tonsillectomy: Yes Other Surgery: Yes (SILICONE AUGMENTATION MAMMOPLASTY, UPPER LID BLEPHAROPLASTY ) Social History Alcohol Use: No Tobacco Use: No Substance Use: No Allergies-Medications (Allergen,Severity, Reaction): Coded Allergies: No Known Allergies (Verified Adverse Reaction, Unknown, 05/31/17) Comments No known drug allergies. Reported Meds & Prescriptions Reported Meds & Active Scripts Active Reported Doxepin (Doxepin HCl) 25 Mg Cap 10 Mg PO HS PRN Temazepam 30 Mg Cap 30 Mg PO HS PRN Lyrica (Pregabalin) 150 Mg Cap 150 Mg PO BID Multiple Vitamin 1 Tab 1 Tab PO DAILY Levothyroxine (Levothyroxine Sodium) 112 Mcg Tab 112 Mcg PO DAILY Hydrocodone-Acetaminophen 10-325 mg Tab 1 Tab PO Q6H PRN Diazepam 10 Mg Tab 10 Mg PO Q8HR PRN Duloxetine DR (Duloxetine HCl) 60 Mg Capdr 60 Mg PO DAILY Atorvastatin (Atorvastatin Calcium) 10 Mg Tab 10 Mg PO HS Aspirin EC (Aspirin) 81 Mg Tabdr 81 Mg PO DAILY Narrative Medication List of her home medications reviewed from the nursing note. Review of Systems Except as stated in HPI: all other systems reviewed are Neg HENT: Positive: Sore Throat Physical Exam Narrative GENERAL: Awake, alert, moderate distress SKIN: Focused skin assessment warm/dry. HEAD: Atraumatic. Normocephalic. EYES: Pupils equal and round. No scleral icterus. No injection or drainage. ENT: No nasal bleeding or discharge. Mucous membranes pink and moist. Hoarseness of her walk voice. Slight erythema of the pharynx. No exudates. Previous Tonsillectomy NECK: Trachea midline. No JVD. CARDIOVASCULAR: Regular rate and rhythm. No murmur appreciated. RESPIRATORY: No accessory muscle use. Clear to auscultation. Breath sounds equal bilaterally. GASTROINTESTINAL: Abdomen soft, non-tender, nondistended. Hepatic and splenic margins not palpable. MUSCULOSKELETAL: No obvious deformities. No clubbing. No cyanosis. No edema. NEUROLOGICAL: Awake and alert. No obvious cranial nerve deficits. Motor grossly within normal limits. Normal speech. PSYCHIATRIC: Appropriate mood and affect; insight and judgment normal. Data Data Last Documented VS Vital Signs Date Time Temp Pulse Resp B/P (MAP) Pulse Ox O2 Delivery O2 Flow Rate FiO2 05/31/17 18:13 05/31/17 16:58 98.3 85 16 98 Orders Orders Group A Rapid Strep Screen (05/31/17 17:18) Strep Culture (Group A) (05/31/17 17:22) Ed Discharge Order (05/31/17 17:55) MDM Medical Decision Making Medical Screen Exam Complete: Yes Emergency Medical Condition: Yes Medical Record Reviewed: Yes Differential Diagnosis Strep pharyngitis, viral laryngitis Narrative Course 5:58 PM rapid strep was negative. Patient will be discharged home on instructions for supportive care. Procedures EKG Prior to Arrival: No Diagnosis Primary Impression: Laryngitis Additional Impression: Viral illness Referrals: Primary Care Physician Additional Instructions: Supportive care would be great like drinking warm tea with honey, Tylenol/Motrin /Advil for pain or fever. Follow-up with your primary care. Return to the ER the condition worsens or any other new concerns. Med/Other Pt SpecificInfo: No Change to Meds Disposition: 01 DISCHARGE HOME Condition: Stable Glen Martinez MD May 31, 2017 17:13
== END 2017-05-31 18:14 | disposition home or self-care (01) ==
LOC: NEPD 16:57
DX: B34.9 Viral infection, unspecified (principal); F31.9 Bipolar disorder, unspecified; E03.9 Hypothyroidism, unspecified; M79.7 Fibromyalgia; M19.90 Unspecified osteoarthritis, unspecified site; E78.00 Pure hypercholesterolemia, unspecified; I10 Essential (primary) hypertension; M81.0 Age-related osteoporosis without current pathological fracture; G62.9 Polyneuropathy, unspecified
CPT/HCPCS: 87081; 87880; 99283

== ENCOUNTER 2018-01-07 19:45 | Observation (INO) ==
--- NOTE | 2018-01-07 21:10 | XR ---
EXAM DATE: 01/07/2018 9:06 PM EDT AGE/SEX: 62 years / Female INDICATIONS: Chest pain. CLINICAL DATA: This is the patient's initial encounter. Patient reports that signs and symptoms have been present for 1 day and indicates a pain score of 4/10. MEDICAL/SURGICAL HISTORY: . Hypertension. Stroke. Myocardial infarction. . Cardiac cath. Stent . COMPARISON: [facility], XR CHEST PA AND LAT, 07/07/2017. . FINDINGS: A single AP view of the chest demonstrates the lungs to be symmetrically aerated without evidence of mass, infiltrate or effusion. The cardiomediastinal contours are unremarkable. Osseous structures a re intact. CONCLUSION: No acute cardiopulmonary process. Electronically signed by: Anurag Del Rosario MD 01/07/2018 9:09 PM EDT
[2018-01-07 21:11] LABS: Baso % (Auto) 0.8 % (0.0-2.0); Eos # (Auto) 0.1 th/mm3 (0.0-0.4); Eos % (Auto) 2.7 % (0.0-4.0); Hematocrit 35.7 % (35.0-46.0); Hemoglobin 11.9 gm/dL (11.6-15.3); Lymph # (Auto) 2.1 th/mm3 (1.0-4.8); Lymph % (Auto) 38.9 % (9.0-44.0); Mean Corpuscular HGB Conc 33.4 % (32.0-36.0); Mean Corpuscular Hemoglobin 29.3 pg (27.0-34.0); Mean Corpuscular Volume 87.6 fL (80.0-100.0); Mean Platelet Volume 9.6 fL (7.0-11.0); Mono # (Auto) 0.6 th/mm3 (0.0-0.9); Mono % (Auto) 10.5 % (0.0-8.0); Neut # (Auto) 2.6 th/mm3 (1.8-7.7); Neut % (Auto) 47.1 % (16.0-70.0); Platelet Count 176 th/mm3 (150-450); Red Blood Count 4.08 mil/mm3 (4.00-5.30); Red Cell Distribution Width 14.8 % (11.6-17.2); White Blood Count 5.5 th/mm3 (4.0-11.0)
[2018-01-07 21:26] LABS: Activated Partial Thrombo Time 27.3 sec (24.3-30.1); Prothrombin Time 10.1 sec (9.8-11.6)
[2018-01-07 21:43] LABS: Anion Gap 7 meq/L (5-15); Blood Urea Nitrogen 10 mg/dL (7-18); Calcium 9.1 mg/dL (8.5-10.1); Chloride 103 meq/L (98-107); Glomerular Filtration Rate Greater Than 89 mL/min (>89); Glucose,Random 86 mg/dL (74-106); Potassium 3.8 meq/L (3.5-5.1); Sodium 140 meq/L (136-145)
--- NOTE | 2018-01-07 22:53 | ED ---
HPI General Chief Complaint: Chest Pain Stated Complaint: Chest pain Time Seen by Provider: 01/07/18 19:59 History of Present Illness HPI narrative: 62-year-old female presents the emergency department with chest pain. She states the pain is familiar to her and is located in the lower part of her sternum. She has had it in the past and has been evaluated for cardiac disease. She has known plaques and was told that she has vasospasm. Her pain radiated to the back and lasted for approximately an hour and a half before resolving. She denies shortness of breath. She has no symptoms at this time. Several prior episodes in the past but none with radiation to the back. Complete Quality Measures for STEMI Alert Patients Related Data Home Medications Medication Instructions Recorded Confirmed aspirin 81 mg PO DAILY 01/07/18 01/07/18 atorvastatin 10 mg PO DAILY 01/07/18 01/07/18 diazepam 10 mg PO BID PRN 01/07/18 01/07/18 doxepin 10 mg PO DAILY PRN 01/07/18 01/07/18 duloxetine 60 mg PO DAILY 01/07/18 01/07/18 levothyroxine 112 mcg PO DAILY 01/07/18 01/07/18 pregabalin 150 mg PO BID 01/07/18 01/07/18 temazepam 30 mg PO HS PRN 01/07/18 01/07/18 Allergies Allergy/AdvReac Type Severity Reaction Status Date / Time No Known Allergies Unknown Uncoded 05/31/17 17:00 [facility] Medical History Medical History History of angina (Acute) History of stroke (Acute) Hx of myocardial infarction (Acute) Surgical History Surgical History Hx of cataract surgery (Acute) Social History Social History Substance History: No History of Abuse Second Hand Smoke Exposure: No Smoking Status: Never smoker How Often Do You Have a Drink Containing Alcohol: Monthly or less Recent Travel in [facility] within the Last 8 Weeks: No Recent Out of Country Travel within the Last 8 Weeks: No Immunization History Tetanus Immunization: <5 Years Hx Influenza Vaccine This Season: Yes Exam Narrative Exam Narrative: GENERAL: 62-year-old female in no distress. SKIN: Focused skin assessment warm/dry. HEAD: Atraumatic. Normocephalic. EYES: Pupils equal and round. No scleral icterus. No injection or drainage. ENT: No nasal bleeding or discharge. Mucous membranes pink and moist. NECK: Trachea midline. No JVD. CARDIOVASCULAR: Regular rate and rhythm. No murmur appreciated. RESPIRATORY: No accessory muscle use. Clear to auscultation. Breath sounds equal bilaterally. GASTROINTESTINAL: Abdomen soft, non-tender, nondistended. Hepatic and splenic margins not palpable. MUSCULOSKELETAL: No obvious deformities. No clubbing. No cyanosis. No edema. Course Initial Documented Vital Signs Temperature 98.2 F 01/07/18 19:52 Pulse Rate 62 01/07/18 19:52 Respiratory Rate 18 01/07/18 19:52 Blood Pressure 155/78 H 01/07/18 19:52 Pulse Oximetry 100 01/07/18 19:52 Last Documented Vital Signs Temperature 97.6 F 01/08/18 07:30 Pulse Rate 64 01/08/18 07:30 Respiratory Rate 16 01/08/18 07:30 Blood Pressure 136/55 L 01/08/18 07:30 Pulse Oximetry 97 01/08/18 07:30 Medical Decision Making MDM Narrative Medical decision making narrative: Patient was seen and evaluated in the emergency department. Her initial lab studies were unremarkable. Her EKG was also unremarkable. Demonstrated sinus bradycardia at a rate of 55 bpm normal axis normal intervals GA interval is 177 QRS is 80 ms and the QTc is 403. There is no abnormal ST segment elevation or depression that would imply acute myocardial injury. Patient was placed in the chest pain unit for cardiac observation and serial enzymes. Lab Data Result diagrams: 01/07/18 20:57 01/07/18 20:57 Lab Results 01/07/18 01/07/18 01/07/18 Range/Units 20:57 20:57 20:57 WBC 5.5 (4.0-11.0) th/mm3 RBC 4.08 (4.00-5.30) mil/mm3 Hgb 11.9 (11.6-15.3) gm/dL Hct 35.7 (35.0-46.0) % MCV 87.6 (80.0-100.0) fL MCH 29.3 (27.0-34.0) pg MCHC 33.4 (32.0-36.0) % RDW 14.8 (11.6-17.2) % Plt Count 176 (150-450) th/mm3 MPV 9.6 (7.0-11.0) fL Neut % (Auto) 47.1 (16.0-70.0) % Lymph % (Auto) 38.9 (9.0-44.0) % Calhoun % (Auto) 10.5 H (0.0-8.0) % Eos % (Auto) 2.7 (0.0-4.0) % Baso % (Auto) 0.8 (0.0-2.0) % Neut # (Auto) 2.6 (1.8-7.7) th/mm3 Lymph # (Auto) 2.1 (1.0-4.8) th/mm3 Calhoun # (Auto) 0.6 (0.0-0.9) th/mm3 Eos # (Auto) 0.1 (0.0-0.4) th/mm3 Baso # (Auto) 0.0 (0.0-0.2) th/mm3 WBC Differential . Differential Comment Auto diff final PT 10.1 (9.8-11.6) sec INR 1.0 Ratio APTT 27.3 (24.3-30.1) sec Sodium 140 (136-145) meq/L Potassium 3.8 (3.5-5.1) meq/L Chloride 103 (98-107) meq/L Carbon Dioxide 30.0 (21.0-32.0) meq/L Anion Gap 7 (5-15) meq/L BUN 10 (7-18) mg/dL Creatinine 0.61 (0.50-1.00) mg/dL Estimated GFR Greater than 89 (>89) mL/min Random Glucose 86 (74-106) mg/dL Calcium 9.1 (8.5-10.1) mg/dL Troponin I Less than 0.02 L (0.02-0.05) ng/mL 01/08/18 01/08/18 Range/Units 00:05 03:30 WBC (4.0-11.0) th/mm3 RBC (4.00-5.30) mil/mm3 Hgb (11.6-15.3) gm/dL Hct (35.0-46.0) % MCV (80.0-100.0) fL MCH (27.0-34.0) pg MCHC (32.0-36.0) % RDW (11.6-17.2) % Plt Count (150-450) th/mm3 MPV (7.0-11.0) fL Neut % (Auto) (16.0-70.0) % Lymph % (Auto) (9.0-44.0) % Calhoun % (Auto) (0.0-8.0) % Eos % (Auto) (0.0-4.0) % Baso % (Auto) (0.0-2.0) % Neut # (Auto) (1.8-7.7) th/mm3 Lymph # (Auto) (1.0-4.8) th/mm3 Calhoun # (Auto) (0.0-0.9) th/mm3 Eos # (Auto) (0.0-0.4) th/mm3 Baso # (Auto) (0.0-0.2) th/mm3 WBC Differential Differential Comment PT (9.8-11.6) sec INR Ratio APTT (24.3-30.1) sec Sodium (136-145) meq/L Potassium (3.5-5.1) meq/L Chloride (98-107) meq/L Carbon Dioxide (21.0-32.0) meq/L Anion Gap (5-15) meq/L BUN (7-18) mg/dL Creatinine (0.50-1.00) mg/dL Estimated GFR (>89) mL/min Random Glucose (74-106) mg/dL Calcium (8.5-10.1) mg/dL Troponin I Less than 0.02 L Less than 0.02 L (0.02-0.05) ng/mL Imaging Data Radiologist's impression: Chest X-Ray 01/07/18 20:53 CONCLUSION: No acute cardiopulmonary process. Discharge Plan Discharge Disposition Patient Disposition: Left Against Medical Advice Discharge Order Discharge Orders: AMA Discharge (Routine); Ordered 01/08/18 Ordered By: Gema Watkins Physicians Team ED Provider: Linda Samuels Primary Care Provider: Kassandra Villafuerte Attending Provider: Prashant Selby Status ED Status: Left Department Discharge Information Discharge Date/Time: 01/08/18 04:27
[2018-01-08 07:32] VITALS: BP 136/55; PULSE 64; RESP 16; TEMP 97.6; O2SAT 97
--- NOTE | 2018-01-08 11:22 | ECG ---
Date Performed: 01/08/2018 Time Performed: 00:15:42 PTAGE: 62 years EKG: Sinus rhythm NORMAL ECG PREVIOUS TRACING : 01/07/2018 19.58 Since previous tracing, no significant change noted DOCTOR: Dandre Valdes Interpretating Date/Time 01/08/2018 11:21:12
--- NOTE | 2018-01-08 11:22 | ECG ---
Date Performed: 01/08/2018 Time Performed: 03:40:17 PTAGE: 62 years EKG: SINUS BRADYCARDIA BORDERLINE ECG PREVIOUS TRACING : 01/08/2018 00.15 Since previous tracing, no significant change noted DOCTOR: Dandre Valdes Interpretating Date/Time 01/08/2018 11:20:16
--- NOTE | 2018-01-08 11:29 | ECG ---
Date Performed: 01/07/2018 Time Performed: 19:58:53 PTAGE: 62 years EKG: SINUS BRADYCARDIA POSSIBLE LEFT ATRIAL ENLARGEMENT Poor R wave progression ABNORMAL ECG PREVIOUS TRACING : 11/28/2016 01.29 DOCTOR: Dandre Valdes Interpretating Date/Time 01/08/2018 11:27:46
--- NOTE | 2018-01-09 06:54 | ED ---
HPI General Chief Complaint: Chest Pain Stated Complaint: Chest pain Time Seen by Provider: 01/07/18 19:59 Related Data Home Medications Medication Instructions Recorded Confirmed aspirin 81 mg PO DAILY 01/07/18 01/07/18 atorvastatin 10 mg PO DAILY 01/07/18 01/07/18 diazepam 10 mg PO BID PRN 01/07/18 01/07/18 doxepin 10 mg PO DAILY PRN 01/07/18 01/07/18 duloxetine 60 mg PO DAILY 01/07/18 01/07/18 levothyroxine 112 mcg PO DAILY 01/07/18 01/07/18 pregabalin 150 mg PO BID 01/07/18 01/07/18 temazepam 30 mg PO HS PRN 01/07/18 01/07/18 Allergies Allergy/AdvReac Type Severity Reaction Status Date / Time No Known Allergies Unknown Uncoded 05/31/17 17:00 [facility], [facility] Medical History Medical History History of angina (Acute) History of stroke (Acute) Hx of myocardial infarction (Acute) Surgical History Surgical History Hx of cataract surgery (Acute) Social History Social History Substance History: No History of Abuse Second Hand Smoke Exposure: No Smoking Status: Never smoker How Often Do You Have a Drink Containing Alcohol: Monthly or less Recent Travel in [facility] within the Last 8 Weeks: No Recent Out of Country Travel within the Last 8 Weeks: No Immunization History Tetanus Immunization: <5 Years Hx Influenza Vaccine This Season: Yes Course Initial Documented Vital Signs Temperature 98.2 F 01/07/18 19:52 Pulse Rate 62 01/07/18 19:52 Respiratory Rate 18 01/07/18 19:52 Blood Pressure 155/78 H 01/07/18 19:52 Pulse Oximetry 100 01/07/18 19:52 Last Documented Vital Signs Temperature 97.6 F 01/08/18 07:30 Pulse Rate 64 01/08/18 07:30 Respiratory Rate 16 01/08/18 07:30 Blood Pressure 136/55 L 01/08/18 07:30 Pulse Oximetry 97 01/08/18 07:30 Quality Measure Queries VTE Deep Vein Thrombosis/Pulmonary Embolism Present on Admission: No Medical Decision Making Lab Data Result diagrams: 01/07/18 20:57 01/07/18 20:57 Lab Results 01/07/18 01/07/18 01/07/18 Range/Units 20:57 20:57 20:57 WBC 5.5 (4.0-11.0) th/mm3 RBC 4.08 (4.00-5.30) mil/mm3 Hgb 11.9 (11.6-15.3) gm/dL Hct 35.7 (35.0-46.0) % MCV 87.6 (80.0-100.0) fL MCH 29.3 (27.0-34.0) pg MCHC 33.4 (32.0-36.0) % RDW 14.8 (11.6-17.2) % Plt Count 176 (150-450) th/mm3 MPV 9.6 (7.0-11.0) fL Neut % (Auto) 47.1 (16.0-70.0) % Lymph % (Auto) 38.9 (9.0-44.0) % [place] % (Auto) 10.5 H (0.0-8.0) % Eos % (Auto) 2.7 (0.0-4.0) % Baso % (Auto) 0.8 (0.0-2.0) % Neut # (Auto) 2.6 (1.8-7.7) th/mm3 Lymph # (Auto) 2.1 (1.0-4.8) th/mm3 [place] # (Auto) 0.6 (0.0-0.9) th/mm3 Eos # (Auto) 0.1 (0.0-0.4) th/mm3 Baso # (Auto) 0.0 (0.0-0.2) th/mm3 WBC Differential . Differential Comment Auto diff final PT 10.1 (9.8-11.6) sec INR 1.0 Ratio APTT 27.3 (24.3-30.1) sec Sodium 140 (136-145) meq/L Potassium 3.8 (3.5-5.1) meq/L Chloride 103 (98-107) meq/L Carbon Dioxide 30.0 (21.0-32.0) meq/L Anion Gap 7 (5-15) meq/L BUN 10 (7-18) mg/dL Creatinine 0.61 (0.50-1.00) mg/dL Estimated GFR Greater than 89 (>89) mL/min Random Glucose 86 (74-106) mg/dL Calcium 9.1 (8.5-10.1) mg/dL Troponin I Less than 0.02 L (0.02-0.05) ng/mL 01/08/18 01/08/18 Range/Units 00:05 03:30 WBC (4.0-11.0) th/mm3 RBC (4.00-5.30) mil/mm3 Hgb (11.6-15.3) gm/dL Hct (35.0-46.0) % MCV (80.0-100.0) fL MCH (27.0-34.0) pg MCHC (32.0-36.0) % RDW (11.6-17.2) % Plt Count (150-450) th/mm3 MPV (7.0-11.0) fL Neut % (Auto) (16.0-70.0) % Lymph % (Auto) (9.0-44.0) % [place] % (Auto) (0.0-8.0) % Eos % (Auto) (0.0-4.0) % Baso % (Auto) (0.0-2.0) % Neut # (Auto) (1.8-7.7) th/mm3 Lymph # (Auto) (1.0-4.8) th/mm3 [place] # (Auto) (0.0-0.9) th/mm3 Eos # (Auto) (0.0-0.4) th/mm3 Baso # (Auto) (0.0-0.2) th/mm3 WBC Differential Differential Comment PT (9.8-11.6) sec INR Ratio APTT (24.3-30.1) sec Sodium (136-145) meq/L Potassium (3.5-5.1) meq/L Chloride (98-107) meq/L Carbon Dioxide (21.0-32.0) meq/L Anion Gap (5-15) meq/L BUN (7-18) mg/dL Creatinine (0.50-1.00) mg/dL Estimated GFR (>89) mL/min Random Glucose (74-106) mg/dL Calcium (8.5-10.1) mg/dL Troponin I Less than 0.02 L Less than 0.02 L (0.02-0.05) ng/mL Imaging Data Radiologist's impression: Chest X-Ray 01/07/18 20:53 CONCLUSION: No acute cardiopulmonary process. Discharge Plan Discharge Disposition Patient Disposition: Left Against Medical Advice Discharge Order Discharge Orders: AMA Discharge (Routine); Ordered 01/08/18 Ordered By: Gema Watkins Physicians Team ED Provider: Linda Samuels Primary Care Provider: Kassandra Villafuerte Attending Provider: Prashant Selby Status ED Status: Left Department Discharge Information Discharge Date/Time: 01/08/18 04:27
== END 2018-01-08 10:50 | disposition left against medical advice (07) ==
LOC: NEPC 19:45 → NEPHCDU 19:45 → NEDA 19:45 → NEPHCDU 01-08 04:15
PROVIDERS: ADMIT Internal Medicine; ATTEND Internal Medicine